=== PATIENT | female | born 1990 | race Caucasian/White ===

== ENCOUNTER → 2016-06-28 | Outpatient (CLI) | payer MEDICAID ==
[~2016-06-28] MED LIST: AC325T PO; ACHD5005 PO; ALBU8.5HRX IH; CEFU500T63; CEPH500C PO; CETI10TA17; CIPR500T4; CTLP20T PO; DCS100C PO; DOXY100C42 PO; ETON68IM3 SQ; FERR-47 PO; FLUO20CA42 PO; HYDR-3730 PO; HYDR-3816; HYDR-757 PO; HYOS0.1283 SL; IBP600T1 PO; METF500T4 PO; METR500T21 PO; NAPR550T PO; NITR-65 PO; ONDA-42 PO; ONDA4TAB8 PO; OXYC-464; PANT40TA2 PO; PHEN37.53 PO; PNT40TEC PO; PROM25TA14 PO; RT-ALBUINH IH; SCP1.5TD TD; SMT80CT PO; SPIR25TA PO; SULF1TAB35 PO; TRAM50TA2 PO
--- NOTE | 2016-06-28 13:07 | Diagnostic Imaging Report ---
PROCEDURE: CT urinary tract, rule out kidney stone. TECHNIQUE: Multiple contiguous axial images were obtained through the abdomen and pelvis without the use of intravenous contrast. INDICATION: Dysuria, hematuria, costovertebral angle tenderness, abdominal pain radiating to the back for two weeks, previous gallbladder surgery. COMPARISON STUDY: CT of the abdomen and pelvis from January 06. FINDINGS: The lung bases are clear. The gallbladder is absent. No ductal dilatation or inflammation is seen. The liver, spleen, pancreas, adrenal glands, and left kidney appear normal. There is a punctate calcification on image #16 in the mid pole of the right kidney. No renal calculi or hydronephrosis is present. Urinary bladder appears normal. Bowel loops demonstrate some mild edema in the wall of the right ascending and proximal transverse colon. The surrounding fat planes appear normal. The bone windows demonstrate no evidence of a fracture. IMPRESSION: 1. There is mild edema in the ascending and transverse colon. Findings are consistent with a nonspecific colitis. 2. Punctate calculus of approximately 1 mm is present in the right kidney without inflammation. Dictated by: Dictated on workstation # [id number]
== END ==
LOC: RAD 12:38
PROVIDERS: ATTEND Nurse Practitioner Family
DX: R30.0 Dysuria (principal); R31.9 Hematuria, unspecified; M54.9 Dorsalgia, unspecified
CPT/HCPCS: 74176

== ENCOUNTER 2016-06-29 12:25 | Emergency (ER) | payer MEDICAID ==
[~2016-06-29] VITALS: Ht 180.3 cm; Wt 149.2 kg
[~2016-06-29 12:25] MED LIST changes: -CEFU500T63; -CETI10TA17; -HYDR-3816; -NAPR550T PO; -PHEN37.53 PO
[2016-06-29] MEDS ORDERED: CETI10TA17 (12:37)
[2016-06-29] MEDS ORDERED: PHEN37.53 PO (12:37)
[2016-06-29] MEDS ORDERED: CIPR500T4 (12:37)
[2016-06-29] MEDS ORDERED: HYDR-3816 (12:37)
[2016-06-29] MEDS ORDERED: CEFU500T63 (12:37)
[2016-06-29 12:47] LABS: BILIRUBIN,URINE NEGATIVE (NEGATIVE); KETONES,URINE NEGATIVE (NEGATIVE); LEUKOCYTE ESTERASE ,URINE 2+ (NEGATIVE); NITRITE,URINE NEGATIVE (NEGATIVE); PH,URINE 5 (5-9); PROTEIN,URINE 2+ (NEGATIVE); UROBILINOGEN,URINE NORMAL (NORMAL)
--- NOTE | 2016-06-29 12:50 | ED GU-Female ---
General Chief Complaint: Abdominal/GI Problems Stated Complaint: ABD/BACK PAIN UNABLE TO URINATE Nursing Triage Note: AMBULATED TO ROOM 07 WITH COMPLAINTS OF ABD PAIN SINCE TUESDAY WITH ONGOING UTI PROBLEMS. HAD A URINE SAMPLE AND A CT DONE YESTERDAY THRU [address] OFFICE. CT WAS DONE HERE. ON CIPRO AND HYDROCODONE. PT STATES SHE HAS NOT BEEN ABLE TO URINATE TODAY. Nursing Sepsis Screen: No Definite Risk Source: patient Exam Limitations: no limitations History of Present Illness Time seen by provider: 12:50 Initial Comments 25-year-old female patient presents to the emergency department complaints of lower abdominal pain beginning Tuesday. States she recently finished a round of antibiotics and was seen by her primary care provider yesterday. Patient reports having an outpatient CT scan here at [facility] as well as a urinalysis done at her provider's office in [place]. States there is blood in the urine. Unsure of CT scan results. Patient denies any history of similar symptoms, however patient was seen by this examiner in November 2015 for similar complaints with findings of bacterial vaginosis. Patient states she is unable to urinate and has not urinated since yesterday at 2230. Timing/Duration: getting worse, other (2-3 days) Severity/Quality: aching, cramping Location: suprapubic Radiation: none Activities at Onset: none Prior Genitourinary Problems: none (patient denies h/o similar symptoms, however, patient was seen by this examiner in Nov 2015 with similar complaints. ) Sexual [place] History: less than 2 months ago, multiple partners Modifying Factors: Worsens With Movement, Worsens With Palpation Allergies and Home Medications Allergies Coded Allergies: morphine (Verified Allergy, Intermediate, RASH, 06/29/16) Uncoded Allergies: TAPE (Allergy, Unknown, 12/06/14) Home Medications Cefuroxime Axetil 500 Mg Tablet, #20 (Reported) Cetirizine HCl 10 Mg Tablet, #30 (Reported) Ciprofloxacin HCl 500 Mg Tablet, #20 (Reported) Hydrocodone/Acetaminophen 1 Each Tablet, #20 (Reported) Hyoscyamine Sulfate 0.125 Mg Tab.subl, 0.125 MG SL Q6H PRN for SPASMS, #20 Ref 0 Prescribed by: GUANACO ALDRIDGE on 06/29/16 2217 Metronidazole 500 Mg Tablet, 500 MG PO BID, #14 Ref 0 Prescribed by: GUANACO ALDRIDGE on 06/29/16 1550 Naproxen Sodium 550 Mg Tablet, 550 MG PO BID PRN for PAIN, #20 Ref 0 Prescribed by: GUANACO ALDRIDGE on 06/29/16 1550 Phentermine HCl 37.5 Mg Tablet, 37.5 MG PO DAILY, (Reported) Constitutional: No chills, No diaphoresis, No fever, No malaise Respiratory: no symptoms reported Cardiovascular: no symptoms reported Gastrointestinal: see HPI, abdominal pain, No constipation, No diarrhea, No loss of appetite, No nausea, No vomiting Genitourinary: denies burning, denies discharge, denies dysuria, denies frequency, denies flank pain, denies hematuria, denies pain, other (patient did note a small amount of blood when wiping today.) Musculoskeletal: no symptoms reported Skin: no symptoms reported Psychiatric/Neurological: No Symptoms Reported All Other Systemes Reviewed Negative Unless Noted: Yes (Negative excepted noted.) Past Zqhvkaw-Lbrcmk-Zzhabm Hx Patient Social History Alcohol Use: Occasionally Uses Recreational Drug Use: Yes (POT) Smoking Status: Current Everyday Smoker Type Used: Cigarettes Recent Foreign Travel: No Contact w/Someone Who Travel: No Recent Infectious Disease Expo: No Recent Hopitalizations: No Immunizations Up To Date Tetanus Booster (TDap): Less than 5yrs PED Vaccines UTD: No Surgeries HX Surgeries: Yes Surgeries: Section, Gallbladder Respiratory Hx Respiratory Disorders: Yes Respiratory Disorders: Asthma Cardiovascular Hx Cardiac Disorders: No Neurological Hx Neurological Disorders: No Reproductive System : No Hx : 1 Hx Para: 1 Hx Total # of Abortions (Spona: 0 Hx Reproductive Disorders: No Sexually Transmitted Disease: No HIV/AIDS: No Female Reproductive Disorders: Denies 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 Chickenpox x2 as child.) Blood Transfusions Hx Blood Disorders: No Adverse Reaction to a Blood Tr: No Reviewed Nursing Assessment Reviewed/Agree w Nursing PMH: Yes Family Medical History Significant Family History: No Pertinent Family Hx Family Medial History: Cancer paternal grandpa maternal grandpa Family history: Allergy 09 SISTER (iodine) Family history: Arthritis maternal grandpa maternal grandma paternal grandma Family history: Asthma 03 FATHER Family history: Diabetes mellitus paternal grandpa maternal grandpa maternal grandma paternal grandma Family history: Gastrointestinal disease 03 MOTHER (Crohn's Disease) History of - respiratory disease 03 FATHER (asthma) Hypercholesterolemia paternal grandpa Myocardial infarction paternal grandpa No Family History of: Abdominal aortic aneurysm [place]'s disease Alcoholism Aphasia Cancer of colon Cataract Chest pain Congenital heart disease Congestive heart failure Cystic fibrosis Dementia Dysphagia Family history: Alzheimer's disease Family history: Breast disease Family history: Cardiovascular disease Family history: Coronary thrombosis Family history: Glaucoma Family history: Hypertension Family history: Osteoporosis Family history: Thyroid disorder Headache Hearing loss Heart disease Hereditary disease History of - anemia History of drug abuse Human immunodeficiency virus (HIV) seropositivity Infertile Kidney disease Malignant neoplasm of lung Parkinson's disease Prostate cancer Psychotic disorder Seizure disorder Stroke Tuberculosis Visual impairment Physical Exam Vital Signs Vital Sign - Last 12Hours 06/29/16 12:30 Temp 97.9 Pulse 88 Resp 16 B/P (MAP) 139/66 Pulse Ox 100 Capillary Refill : Less Than 3 Seconds General Appearance: WD/WN, no apparent distress Cardiovascular: regular rate, rhythm, no murmur Respiratory: lungs clear, normal breath sounds, no respiratory distress Gastrointestinal: normal bowel sounds, soft, No distended, guarding (suprapubic ), No rebound, tenderness (generalized tenderness with greatest tenderness in the lower abdomen) Pelvic: normal external exam, discharge (dark blood tinged discharge.), tender w/ cervical motion, tender adnexa, tender uterus, vaginal bleeding (small amount of dark blood noted in the vaginal canal.), other (cervix inflamed w/o mass or ulcerations. ) Back: normal inspection, CVA tenderness (R), CVA tenderness (L) Extremities: no pedal edema, normal capillary refill Neurologic/Psychiatric: alert, normal mood/affect, oriented x 3 Skin: normal color, warm/dry Focused Exam Lactic Acid Level Progress/Results/Core Measures Results/Orders Lab Results Micro Results My Orders Medications Given in ED Vital Signs/I&O Blood Pressure Mean: 90 Diagnostic Imaging Diagonstic Imaging: Ultrasound Plain Films/CT/US/NM/MRI: pelvis Comments DISCUSSION: Transabdominal and transvaginal sonographic evaluation of the pelvis was performed. The uterus is normal in echotexture and size measuring 6.4 x 3.9 x 3.0 cm. Normal endometrial thickness measuring 0.3 cm. The right ovary was obscured due to bowel. The left ovary appears normal in echotexture and size with normal color Doppler blood flow. The left ovary measures 3.0 x 2.1 x 2.1 cm. No abnormal adnexal mass or fluid. IMPRESSION: 1. Nonvisualization of the right ovary. Otherwise, unremarkable pelvic ultrasound. Dictated on workstation # [id number] Reviewed: Reviewed by Me (radiology report reviewed by me) Diagonstic Imaging: CT Plain Films/CT/US/NM/MRI: abdomen, pelvis Comments FINDINGS: The lung bases are clear. The liver appears normal. The gallbladder is absent. No inflammatory changes are present. The spleen, pancreas, adrenal glands and kidneys are normal. Urinary bladder, uterus and adnexal structures appear unremarkable. The appendix and bowel loops appear normal. Previously, there is questionable mild edema in the ascending colon. This could be due to it being decompressed. There is no ascites or free air. No hernias are present. Bone windows appear normal. IMPRESSION: Normal CT scan of the abdomen and pelvis. Questionable edema in the colon has resolved. The previous punctate calculi in the right kidney is not visible. This could be due to contrast. Dictated on workstation # [id number] Reviewed: Reviewed by Me (radiology report reviewed by me) Departure Communication Progress Notes Laboratory and diagnostic findings discussed with the patient. Plan for discharge to home. Patient instructed to follow-up with her primary care Provider for final culture results. Impression Impression: Primary Impression: Lower abdominal pain Additional Impression: Bacterial vaginosis Disposition: HOME, SELF-CARE Condition: Improved Departure-Patient Inst. Decision time for Depature: 15:39 Referrals: [facility] (PCP/Family) Primary Care Physician Patient Instructions: Bacterial Vaginosis (DC) Add. Discharge Instructions: All discharge instructions reviewed with patient and/or family. Voiced understanding. Medications as instructed. Continue home medications as prescribed by your nurse practitioner. Ibuprofen 800 mg by mouth every 8 hours as needed for pain. Follow-up his family practitioner for recheck tomorrow as an outpatient call today for appointment time. Return to the emergency department for worsened symptoms or any other concerns. Scripts Hyoscyamine Sulfate (Levsin-Sl) 0.125 Mg Tab.subl 0.125 MG SL Q6H Y for SPASMS, #20 TAB 0 Refills Prov: GUANACO ALDRIDGE 06/29/16 Naproxen Sodium (Anaprox Ds) 550 Mg Tablet 550 MG PO BID Y for PAIN, #20 TAB 0 Refills Prov: GUANACO ALDRIDGE 06/29/16 Metronidazole (Metronidazole) 500 Mg Tablet 500 MG PO BID, #14 TAB 0 Refills Prov: GUANACO ALDRIDGE 06/29/16 Work/School Note: Work Release Form Date Seen in the Emergency Department: Jun 29, 2016 Return to Work: Jun 30, 2016 Restrictions: No Restrictions GUANACO ALDRIDGE Jun 29, 2016 12:50
[2016-06-29 12:58] LABS: SQUAMOUS EPITHELIAL CELL,UR TNTC /HPF
[2016-06-29] MEDS ORDERED: KETOROLAC 30 MG/ML VIAL IVP STA (12:59)
[2016-06-29 13:11] LABS: BASOPHILS % (AUTO) 1 % (0-10); EOSINOPHILS # (AUTO) 0.4 10^3/uL (0.0-0.3); EOSINOPHILS % (AUTO) 7 % (0-10); LYMPHOCYTES # (AUTO) 2.2 X 10^3 (1.0-4.0); LYMPHOCYTES % (AUTO) 33 % (12-44); MEAN CORPUSCULAR HEMOGLOBIN 28 PG (25-34); MEAN CORPUSCULAR HGB CONC 34 G/DL (32-36); MEAN CORPUSCULAR VOLUME 83 FL (80-99); MEAN PLATELET VOLUME 9.9 FL (7.4-10.4); MONOCYTES # (AUTO) 0.6 X 10^3 (0.0-1.0); MONOCYTES % (AUTO) 8 % (0-12); NEUTROPHILS # (AUTO) 3.4 X 10^3 (1.8-7.8); NEUTROPHILS % (AUTO) 52 % (42-75); PLATELET COUNT 263 10^3/uL (130-400); RED BLOOD COUNT 4.75 10^6/uL (4.35-5.85); RED CELL DISTRIBUTION WIDTH 13.1 % (10.0-14.5); WHITE BLOOD COUNT 6.6 10^3/uL (4.3-11.0)
[2016-06-29 13:33] LABS: ALANINE AMINOTRANSFERASE 26 U/L (0-55); ANION GAP 9 MMOL/L (5-14); ASPARTATE AMINO TRANSFERASE 25 U/L (5-34); BILIRUBIN,TOTAL 0.3 MG/DL (0.1-1.0); BLOOD UREA NITROGEN 17 MG/DL (7-18); BUN/CREATININE RATIO 21; CALCIUM 8.9 MG/DL (8.5-10.1); CARBON DIOXIDE 22 MMOL/L (21-32); CHLORIDE 109 MMOL/L (98-107); GFR ESTIMATED > 60; GLUCOSE 86 MG/DL (70-105); POTASSIUM 3.8 MMOL/L (3.6-5.0); SODIUM 140 MMOL/L (135-145); TOTAL PROTEIN 6.9 G/DL (6.4-8.2); hs C REACTIVE PROTEIN 0.52 MG/DL (0.00-0.50)
[2016-06-29] MEDS ORDERED: morphine INJ 10 MG/ML 1ML (SYR OR VIAL) IVP STA ×2 (13:56→14:29)
--- NOTE | 2016-06-29 14:03 | Diagnostic Imaging Report ---
INDICATION: Left-sided back and pelvic pain. COMPARISON: 12/02/2015. DISCUSSION: Transabdominal and transvaginal sonographic evaluation of the pelvis was performed. The uterus is normal in echotexture and size measuring 6.4 x 3.9 x 3.0 cm. Normal endometrial thickness measuring 0.3 cm. The right ovary was obscured due to bowel. The left ovary appears normal in echotexture and size with normal color Doppler blood flow. The left ovary measures 3.0 x 2.1 x 2.1 cm. No abnormal adnexal mass or fluid. IMPRESSION: 1. Nonvisualization of the right ovary. Otherwise, unremarkable pelvic ultrasound. Dictated by: Dictated on workstation # [id number]
[2016-06-29 14:37] LABS: BILIRUBIN,URINE NEGATIVE (NEGATIVE); KETONES,URINE NEGATIVE (NEGATIVE); LEUKOCYTE ESTERASE ,URINE NEGATIVE (NEGATIVE); NITRITE,URINE NEGATIVE (NEGATIVE); PH,URINE 6.5 (5-9); PROTEIN,URINE NEGATIVE (NEGATIVE); UROBILINOGEN,URINE NORMAL (NORMAL)
[2016-06-29] MEDS ORDERED: FAMOTIDINE 20MG/2ML IV (PEPCID) IV STA (14:38)
[2016-06-29] MEDS ORDERED: methylPREDNISolone 125 MG (Solu-MEDROL) VIAL IV STA (14:38)
[2016-06-29] MEDS ORDERED: diphenhydrAMINE 50 MG/ML INJ (BENADRYL) IV STA (14:38)
[2016-06-29] MEDS ORDERED: NS 100 ML (IVPB) BAG IV ONE (14:45)
[2016-06-29] MEDS ORDERED: IOHEXOL 350 MG/ML 100 ML (OMNIPAQUE 350) VIAL IV ONE (14:45)
[2016-06-29 14:46] LABS: WBC,URINE RARE /HPF
--- NOTE | 2016-06-29 15:05 | Diagnostic Imaging Report ---
PROCEDURE: CT abdomen and pelvis with contrast. TECHNIQUE: Multiple contiguous axial images were obtained through the abdomen and pelvis after administration of intravenous contrast. INDICATION: Lower abdominal pain and back pain for three days. CONTRAST: 100 mL of Omnipaque 350 was given intravenously. COMPARISON STUDY: CT scan from yesterday and ultrasound of the pelvis from today. FINDINGS: The lung bases are clear. The liver appears normal. The gallbladder is absent. No inflammatory changes are present. The spleen, pancreas, adrenal glands and kidneys are normal. Urinary bladder, uterus and adnexal structures appear unremarkable. The appendix and bowel loops appear normal. Previously, there is questionable mild edema in the ascending colon. This could be due to it being decompressed. There is no ascites or free air. No hernias are present. Bone windows appear normal. IMPRESSION: Normal CT scan of the abdomen and pelvis. Questionable edema in the colon has resolved. The previous punctate calculi in the right kidney is not visible. This could be due to contrast. Dictated by: Dictated on workstation # [id number]
[2016-06-29] MEDS ORDERED: fentaNYL INJECTION 100 MCG/2 ML AMP IVP STA (15:17)
[2016-06-29] MEDS ORDERED: DIAZEPAM INJ 10 MG/2 ML (VALIUM) SYR IV ONE (15:30)
[2016-06-29] MEDS ORDERED: METR500T21 PO (15:50)
[2016-06-29] MEDS ORDERED: NAPR550T PO (15:50)
[2016-06-29] MEDS ORDERED: HYOS0.1283 SL (15:57)
[2016-06-29 16:01] VITALS: BP 119/74
== END 2016-06-29 16:01 | disposition home or self-care (01) ==
LOC: EDUNIT# 12:25 → ER 12:28
DX: R10.30 Lower abdominal pain, unspecified (principal); N76.0 Acute vaginitis; F17.210 Nicotine dependence, cigarettes, uncomplicated
CPT/HCPCS: 36415; 51701; 74177; 76830; 76856; 80053; 81000; 84703; 85025; 86141; 87070; 87210; 87491; 87591; 96374; 96375

== ENCOUNTER → 2016-08-20 | Outpatient (CLI) | payer MEDICAID ==
[~2016-08-20] MED LIST changes: +CEFU500T63; +CETI10TA17; +HYDR-3816; +NAPR550T PO; +PHEN37.53 PO
== END ==
LOC: RAD 09:40
PROVIDERS: ATTEND Nurse Practitioner Family
DX: G44.52 New daily persistent headache (NDPH) (principal)

== ENCOUNTER 2018-06-17 09:59 | Outpatient (CLI) | payer SELFPAY ==
[~2018-06-17] VITALS: Ht 180.3 cm; Wt 167.4 kg
[~2018-06-17 09:59] MED LIST changes: +HYDR-34; -HYDR-3816; +HYDR-4226 PO; -HYDR-757 PO; +METF-397 PO; -METF500T4 PO; +METR-145 PO; -METR500T21 PO; +NAPR-1070 PO; -NAPR550T PO
--- NOTE | 2018-06-17 10:05 | NUR ---
ANJANA KIMBALL presented to unit via ambulation from ED, accompanied by mother, with c/o LT LEG SWEELING, 30 WKS . ANJANA KIMBALL weighed, gowned, voided, and to bed. EFHM and TOCO applied, VS taken. ANJANA KIMBALL oriented to bed controls, call light, TV, heat, and A/C controls.
[2018-06-17 10:30] VITALS: BP 109/52
[2018-06-17] MEDS ORDERED: RANI-514 PO (10:54)
[2018-06-17] MEDS ORDERED: PREN-53 PO (10:54)
--- NOTE | 2018-06-17 10:55 | NUR ---
Dr. Le notified of pt arrival, c/o severe swelling and burning in lower extremities x3 days, JOHNSON x2 days, blurry vision x2 days with driving. notified of VS, UA dipstick, FHR, Ctx pattern, other assessment findings. May D/C home after reactive NST with instructions to increase water intake, decrease sodium intake, elevate legs as much as possible.
[2018-06-17 11:00] VITALS: BP 121/58
--- NOTE | 2018-06-17 11:10 | NUR ---
Latest BP's reported to Dr. Le. FHR/Ctx pattern visualized by Dr. Le. D/C order rec'd.
[2018-06-17 11:15] VITALS: BP 120/57
--- NOTE | 2018-06-17 11:30 | NUR ---
Discharge instructions explained to pt with copy provided to pt. Emphasis on increasing water intake, decreasing sodium intake, elevating legs. Pt verbalizes understanding of teaching, signs to verify. Denies questions or concerns at this time. Ambulates self off unit accompanied by family member to private vehicle with all personal belongings. No s/s of distress noted.
== END 2018-06-17 11:30 | disposition home or self-care (01) ==
LOC: WSo 09:59 → LDRP 10:00 → WSo 11:30
PROVIDERS: ATTEND Family Medicine
DX: O99.89 Other specified diseases and conditions complicating pregnancy, childbirth and the puerperium (principal); M79.89 Other specified soft tissue disorders; Z3A.30 30 weeks gestation of pregnancy
CPT/HCPCS: 99213

== ENCOUNTER 2018-08-14 09:40 | Outpatient (CLI) | payer MEDICAID ==
[~2018-08-14] VITALS: Ht 180.3 cm; Wt 166.5 kg
[~2018-08-14 09:40] MED LIST changes: +PREN-53 PO; +RANI-514 PO
[2018-08-14] MEDS ORDERED: RT-ALBUINH IH (10:03)
== END 2018-08-14 10:15 | disposition home or self-care (01) ==
LOC: PREOP 09:40
PROVIDERS: ATTEND Obstetrics & Gynecology
DX: Z01.818 Encounter for other preprocedural examination (principal)
CPT/HCPCS: 87081

== ENCOUNTER 2018-08-14 11:38 | Outpatient (CLI) | payer MEDICAID ==
[~2018-08-14] VITALS: Ht 180.3 cm; Wt 166.5 kg
--- NOTE | 2018-08-14 11:30 | NUR ---
ANJANA KIMBALL presented to unit via AMBULATION from ED, with c/o CONTRACTIONS. ANJANA KIMBALL weighed, gowned, voided, and to bed. EFHM and TOCO applied, VS taken. ANJANA KIMBALL oriented to bed controls, call light, TV, heat, and A/C controls.
[2018-08-14] MEDS ORDERED: LACTATED RINGERS 1,000 ML IV SCH (11:45)
--- NOTE | 2018-08-14 11:45 | NUR ---
SEE LABOR FLOWSHEET FOR DOCUMENTATION.
[2018-08-14 11:50] VITALS: BP 120/64
[2018-08-14 12:34] LABS: BILIRUBIN,URINE NEGATIVE (NEGATIVE); CLARITY,URINE CLEAR; COLOR,URINE YELLOW; GLUCOSE, URINE (UA) NEGATIVE (NEGATIVE); KETONES,URINE NEGATIVE (NEGATIVE); LEUKOCYTE ESTERASE ,URINE 1+ (NEGATIVE); NITRITE,URINE NEGATIVE (NEGATIVE); PH,URINE 5 (5-9); PROTEIN,URINE 1+ (NEGATIVE); UROBILINOGEN,URINE NORMAL (NORMAL)
[2018-08-14 12:40] VITALS: BP 124/68
[2018-08-14 12:42] LABS: BACTERIA,URINE FEW /HPF
[2018-08-14 13:10] VITALS: BP 105/55
[2018-08-14 13:40] VITALS: BP 109/54
--- NOTE | 2018-08-14 13:50 | NUR ---
DR JUNG CALLED, UPDATE GIVEN, NO NEW TO D/C HOME.
--- NOTE | 2018-08-14 14:05 | NUR ---
D/C INSTRUCTIONS EXPLAINED TO PT, SIGNED, PT VERBALIZES UNDERSTANDING OF D/C INSTRUCTIONS AND LABOR PRECAUTIONS, PT ALSO INSTRUCTED TO INCREASE FLUID INTAKE AND RETURN IF NEEDED TO [facility] BEFORE HER SCHEDULED C/S DATE OF August.
--- NOTE | 2018-08-14 14:15 | NUR ---
PT DISCHARGED TO HOME, AMBULATED TO PRIVATE CAR WITHOUT CONCERNS OR QUESTIONS NOTED, NO DISTRESS NOTED. PT TO FOLLOW UP WITH HER PROVIDER SCHEDULED.
--- NOTE | 2018-08-17 09:27 | Physician Query-Final Dx ---
BERTRAM ROCHA 08/17/18 0927: Final Diagnosis Give Final Diagnosis Please give Final Diagnosis Dr Johns Please give a diagnosis and include the weeks of gestation thank you HAYDEE JOHNS MD 08/21/18 1732: Final Diagnosis Give Final Diagnosis Vaginal Pressure Third trimester pregnacy 38 week gestation Obesity in preg BERTRAM ROCHA August 17, 2018 09:27 HAYDEE JOHNS MD August 21, 2018 17:32
[2018-08-21] MEDS ORDERED: ACHD5005 PO (07:19)
[2018-08-21] MEDS ORDERED: IBUP-844 PO (07:19)
[2018-08-21] MEDS ORDERED: DOCU100C37 PO (07:19)
== END 2018-08-14 14:15 | disposition home or self-care (01) ==
LOC: WSo 11:38 → LDRP 11:39 → WSo 14:15
PROVIDERS: ATTEND Family Medicine
DX: O26.893 Other specified pregnancy related conditions, third trimester (principal); N89.8 Other specified noninflammatory disorders of vagina; O99.213 Obesity complicating pregnancy, third trimester; E66.9 Obesity, unspecified; Z3A.38 38 weeks gestation of pregnancy
CPT/HCPCS: 81000; 99213

== ENCOUNTER 2018-08-21 06:00 | Inpatient (IN) | payer MEDICAID | END 2018-08-22 11:48 | disposition home or self-care (01) | LOC: LDRP 06:00 ==